=== PATIENT | female | born 1995 | race African-American/Black ===

== ENCOUNTER 2019-03-18 10:37 | Emergency (ER) | payer OTHER ==
[~2019-03-18] VITALS: Ht 175.3 cm; Wt 81.7 kg
[~2019-03-18 10:37] MED LIST: AMOXICILLIN 50500 MG PO; IBUPROFEN 600600 M1; NAPROSYN500 MG PO; TYLENOL325 MG
[2019-03-18 11:21] LABS: ABSOLUTE NEUTROPHILS 3.5 thou/uL (1.4-8.2); BASOPHILS 0.6 % (0.0-2.0); EOSINOPHILS 5.3 % (0.0-3.0); HEMATOCRIT 37.7 % (37.0-47.0); HEMOGLOBIN 12.7 gm/dL (12.0-15.0); LYMPHOCYTES 35.9 % (24.0-44.0); MCH 31.6 pg (26.0-34.0); MCHC 33.7 g/dL (28.0-37.0); MCV 93.9 fL (80.0-100.0); MONOCYTES 5.7 % (1.0-8.0); PLATELET COUNT 209 thou/uL (150-400); POLYS 52.5 % (36.0-66.0); RBC 4.01 mil/uL (4.20-5.00); RDW 13.3 % (10.5-14.5); WBC 6.7 thou/uL (4.0-11.0)
[2019-03-18 12:00] VITALS: BP 110/72
== END 2019-03-18 12:00 | disposition home or self-care (01) ==
LOC: ER 10:37
PROVIDERS: Physician Assistant
DX: N92.0 Excessive and frequent menstruation with regular cycle (principal)